=== PATIENT | female | born 1960 | race Caucasian/White ===

== ENCOUNTER → 2016-08-13 | Outpatient (CLI) | payer OTHER ==
--- NOTE | 2016-08-13 16:36 | DX ---
"Chest, PA and Lateral History: Asthma, J45.40, J98.4 Comparison: May 09, 2015 Findings: There is a new nodular density in the right upper lobe in the region overlying the anterior right first rib and posterior fifth rib. There is a new small amount of vaguely nodular consolidatio n at the medial right base. There is no infiltrate or pleural effusion. Heart size and pulmonary vasc ularity are normal. There is no adenopathy. There is no pneumomediastinum or pneumothorax. Bones are unremarkable for age. Right upper quadrant surgical clips are consistent with prior cholecystectomy. Impression: New small density right upper lobe and right lower lobe. This may represent atelectasis a nd/or mucous plugging, although new pulmonary nodules cannot be excluded. Consider follow-up chest x- ray after appropriate therapy. If persistent noncontrast chest CT should then be considered. A Follow-Up Required test result has been communicated via the [employer] [facility] | Critical Result syst em on 08/13/2016 16:35, Message ID [id number]."
== END ==
LOC: CIMAGING 13:21
PROVIDERS: ATTEND Family Medicine
DX: J45.40 Moderate persistent asthma, uncomplicated (principal); J98.4 Other disorders of lung; J30.89 Other allergic rhinitis
CPT/HCPCS: 71020-PO

== ENCOUNTER → 2016-10-07 | Outpatient (CLI) | payer OTHER | LOC: CIMAGING 08:51 | PROVIDERS: ATTEND Family Medicine | DX: J40 Bronchitis, not specified as acute or chronic (principal) | CPT/HCPCS: 71020-PO ==

== ENCOUNTER → 2017-01-05 | Outpatient (CLI) | payer OTHER | LOC: CIMAGING 07:59 | PROVIDERS: ATTEND Family Medicine | DX: K76.9 Liver disease, unspecified (principal) | CPT/HCPCS: 76700-PO ==

== ENCOUNTER → 2018-01-08 | Outpatient (CLI) | payer OTHER | LOC: CIMAGING 07:11 | PROVIDERS: ATTEND Family Medicine | DX: D18.03 Hemangioma of intra-abdominal structures (principal) | CPT/HCPCS: 76705-PO ==

== ENCOUNTER 2018-04-16 05:29 | Day surgery (SDC) | payer OTHER ==
--- NOTE | 2018-04-15 13:40 | GHP ---
DATE OF ADMISSION: 04/16/2018 PLANNED PROCEDURE: Removal of bilateral labial inclusion cysts. INDICATIONS: The patient is a 57-year-old, 0, who presented to me in March of this year complaining of lumps in her vagina for years that become painful and tender and are very embarrassing . The patient is not sexually active, primarily secondary to 's medical issues. However, thi s is preventing her from becoming sexually active. The patient was found to have multiple bilateral inclusion cysts on bilateral labia that become painful and tender and irritated. She is requesting r emoval of these. We have discussed management options. Decision was made to proceed with bilateral labial resection. Risks and benefits of the procedure were reviewed with the patient, including risk of recurrence, risk of future dyspareunia. The patient agrees to this and has been properly consent ed. 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 MEDICATIONS: Oxybutynin, chloride, hydrochlorothiazide, trazodone, Topamax, Premarin, Claritin, Symb icort, oxycodone p.r.n., lansoprazole. SURGICAL HISTORY: Surgical correction of pyloric stenosis, cholecystectomy, appendectomy, laparoscop y, hysterectomy, bilateral salpingo-oophorectomy, right arm ulnar shortening, hardware removal, remov al of seroma following abdominal surgery. ALLERGIES: Codeine, morphine and Dilaudid. SOCIAL HISTORY: Patient is . She denies tobacco or drug use. She does drink 3 alcoholic zohra erages a month. FAMILY MEDICAL HISTORY: Noncontributory. METER INSPECTOR HISTORY: Patient is post menopausal. She is a 0. She had infertility secondary to h er endometriosis and subsequently had a hysterectomy. The patient denies any history of any abnormal Pap smears or sexually transmitted diseases. REVIEW OF SYSTEMS: Ten-point review of systems is negative. PHYSICAL EXAMINATION: VITAL SIGNS: Stable. Her weight is 251 pounds. Her blood pressure is 102/68 . Her BMI is 34. GENERAL APPEARANCE: No acute distress. PSYCHIATRIC: Alert and oriented x3 and a ppropriate affect. NEURO: Grossly intact. SKIN: Warm, dry. No ulcers or Lesions. RESPIRATORY: Lungs are clear to auscultation bilaterally. HEART: Rate is regular regular. ABDOMEN: Obese, soft , nondistended, nontender. EXTREMITIES: Reveal no calf tenderness or edema. PELVIC: She has multi ple bilateral inclusion/sebaceous cysts on her labia majora. ASSESSMENT AND PLAN: A 57-year-old 0 with bilateral inclusion cysts on labia majora, request ing surgical removal. She will undergo a resection of her labia minora bilaterally. Risks and benef its of the procedure have been extensively reviewed with the patient. The patient has been properly consented. /[id number]/MODL
[2018-04-16] MEDS ORDERED: LIDOCAINE 1% 2 ML INJ ID PRN (05:49)
[2018-04-16] MEDS ORDERED: LR 1,000 ML IV ONE (05:49)
[2018-04-16] MEDS ORDERED: LIDOCAINE 1% 2 ML INJ ONE (05:54)
[2018-04-16] MEDS ORDERED: BUPIVACAINE 0.25% 30 ML SDV ONE (07:00)
[2018-04-16] MEDS ORDERED: SILVER NITRATE APPLICATOR 1 APPL TP ONE (07:00)
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
[2018-04-16] MEDS ORDERED: MIDAZOLAM 2 MG/2 ML VIAL IVP ONE (07:07)
[2018-04-16] MEDS ORDERED: MIDAZOLAM 2 MG/2 ML VIAL ONE (07:08)
[2018-04-16] MEDS ORDERED: LIDOCAINE 2% 100 MG/5 ML SYR ONE (07:10)
[2018-04-16] MEDS ORDERED: DEXAMETHASONE 4 MG/ML VIAL ONE (07:10)
[2018-04-16] MEDS ORDERED: ONDANSETRON 4 MG/2 ML VIAL ONE (07:10)
[2018-04-16] MEDS ORDERED: fentaNYL 100 MCG/2 ML INJ ONE (07:10)
[2018-04-16] MEDS ORDERED: PROPOFOL 200 MG/20 ML VIAL ONE (07:10)
--- NOTE | 2018-04-16 07:13 | PDHPUP ---
History & Physical Update H&P update statement: This history and physical update is based on an assessment of the patient which was completed after admission or registration (within 24 hours), but prior to the surgery/procedure. H&P update: H&P reviewed & patient examined, no change in patient's condition since H&P completed
[2018-04-16] MEDS ORDERED: LIDO/EPI 2%** Not for Epidural 20 ML MDV ONE (07:31)
[2018-04-16] MEDS ORDERED: PROMETHAZINE HCL 25 MG/ML INJ IVP PRN (08:34)
[2018-04-16] MEDS ORDERED: MEPERIDINE 25 MG/0.5 ML AMP IVP PRN (08:34)
[2018-04-16] MEDS ORDERED: ONDANSETRON 4 MG/2 ML VIAL IVP PRN (08:34)
[2018-04-16] MEDS ORDERED: ALBUTEROL 3 ML DEYVIAL IH PRN (08:34)
[2018-04-16] MEDS ORDERED: LR 500 ML IV PRN (08:34)
[2018-04-16] MEDS ORDERED: NALOXONE HCL 0.4 MG/ML INJ IVP PRN (08:34)
[2018-04-16] MEDS ORDERED: ACETAMINOPHEN 500 MG TAB PO PRN (08:34)
--- NOTE | 2018-04-16 08:37 | POSTANESTH ---
Post Anesthetic Evaluation Cardiovascular Status: Normal, Stable Respiratory Status: Normal, Stable Level of Consciousness/Mental Status: Can Participate in Eval Pain Control: Adequate, Prn Tx Ordered Nausea/Vomiting Control: Adequate, Prn Tx Ordered (Patient comfortable without complaints in PACU. Sleepy but able to participate and answer all questions appropriately. PACU orders adjusted to use demerol for post op severe pain due to multiple narcotic allergies and patient preference) Complications Possibly Related to Anesthesia: None Noted
[2018-04-16 09:33] VITALS: BP 102/58
--- NOTE | 2018-04-16 10:24 | GOP ---
DATE OF OPERATION: 04/16/2018 SURGEON: Zita Leslie DO ANESTHESIA: General with LMA. ANESTHESIOLOGIST: PREOPERATIVE DIAGNOSIS: Bilateral labial inclusion cysts. POSTOPERATIVE DIAGNOSIS: Bilateral labial inclusion cysts. PROCEDURE PERFORMED: Removal of bilateral labia/vulvectomy. FINDINGS: Bilateral labial inclusion cyst. SPECIMENS: Bilateral labia, including the inclusion cysts. ESTIMATED BLOOD LOSS: 20 cc. INDICATIONS: Patient is a 57-year-old 0, who has a several-year history of painful bumps in her vagina. She was evaluated and found to have bilateral extensive labial inclusion cysts taking up most of her labia. Patient was requesting surgery to remove these. Management options were reviewe d with the patient. Patient decided to proceed with surgery. Risks and benefits were discussed. DESCRIPTION OF PROCEDURE: Patient was taken to the operating room with intravenous fluids in place. She was then placed on the operating room table in dorsal supine position where general anesthesia w as obtained with ease. She was then repositioned into the dorsal lithotomy position with the Yellofi n stirrups and prepped and draped in normal sterile fashion. 2% lidocaine was with epinephrine was u sed to inject the bilateral labia, around the inclusion cysts and bilateral labia were then noted to be full of superficial inclusion cysts. A scalpel used to excise the superficial skin area of the labia on the patient's right side. An appr oximately 4 x 2 cm specimen was excised. Hemostasis was assured with the Bovie. 3-0 Vicryl suture o n an SH was used in multiple layers to bring the tissue back together and the skin was closed in a ru nning subcuticular fashion. The same procedure was performed on the opposite side removing a slightl y smaller segment of labial tissue. Hemostasis was assured and a 3-0 Vicryl stitch was used in 3 lay ers to reapproximate the tissue and close the skin in a running subcuticular fashion. The area was c ompletely static. The patient was then cleaned and returned to the dorsal supine position where she was woken from anesthesia. Sponge, lap, and needle count were correct x2. Patient was transferred t o recovery room in stable condition. /[id number]/MODL
== END 2018-04-16 09:42 | disposition home or self-care (01) ==
LOC: FSGY 05:29
PROVIDERS: ATTEND Obstetrics & Gynecology
PROC: 0UBMXZZ Excision of Vulva, External Approach (ICD-10-PCS; principal; 2018-04-16 07:15)
DX: N90.7 Vulvar cyst (principal); J45.909 Unspecified asthma, uncomplicated; E66.9 Obesity, unspecified; G47.33 Obstructive sleep apnea (adult) (pediatric)
CPT/HCPCS: J1100; J2001; J2250; J2405; J2704; J3010